=== PATIENT | female | born 1965 | race Caucasian/White ===

== ENCOUNTER 2016-08-06 09:19 | Emergency (ER) | payer OTHER ==
[~2016-08-06] VITALS: Ht 236.2 cm; Wt 76.0 kg
[~2016-08-06 09:19] MED LIST: CEPH-443 PO; FER325 PO; HYDR-3498 PO; IBUP-1542 PO; MECL25TA2 PO; NYST15CR16 TOP
[2016-08-06 09:22] VITALS: Ht 236.2 cm; Wt 76.0 kg
[2016-08-06] MEDS ORDERED: DEXAMETHASONE 10 MG/ML 1 ML INJ IV STA (09:51)
[2016-08-06] MEDS ORDERED: LEVALBUTEROL (NEB) 1.25 MG/0.5 ML AMP INH STA (09:51)
[2016-08-06 10:36] LABS: ADD SCAN DIFF NO
[2016-08-06 10:38] LABS: BASOPHILS % 0.6 % (0.0-2.0); EOSINOPHILS # 0.4 10^3/ul (0.0-0.5); HEMOGLOBIN 15.2 g/dl (12.0-16.0); LYMPHOCYTES # 1.1 10^3/ul (0.8-2.9); MEAN CORPUSCULAR HEMOGLOBIN 29.9 pg (29.0-33.0); MEAN CORPUSCULAR HGB CONC 34.5 g/dl (32.0-37.0); MEAN CORPUSCULAR VOLUME 86.6 fl (82.0-101.0); MEAN PLATELET VOLUME 10.2 fl (7.4-10.4); MONOCYTE # 0.5 10^3/ul (0.3-0.9); MONOCYTES % 10.6 % (0.0-11.0); NEUTROPHILS % 59.6 % (39.0-77.0); PLATELET COUNT 223 10^3/UL (140-415); RED BLOOD COUNT 5.08 10^6/ul (4.20-5.40); RED CELL DISTRIBUTION WIDTH 12.1 % (11.5-14.5)
[2016-08-06 10:53] LABS: D-DIMER 381.77 ng/ml (<460)
--- NOTE | 2016-08-06 11:10 | RADRPT ---
PROCEDURE: XR Chest AP portable CLINICAL INDICATION: Asthma exacerbation TECHNIQUE: An AP portable radiograph of the chest was submitted. COMPARISON: None. FINDINGS: Support Hardware: None Cardiovascular: The cardiovascular silhouette appears unremarkable. Lung Bernal: A suboptimal inspiration compresses lung parenchyma with discoid atelectasis seen at th e lung bases. Pleural Spaces: No pneumothorax or pleural effusion is identified. Osseous Structures: The osseous structures appear intact. Soft Tissues: The soft tissues appear generous. IMPRESSION: Suboptimal inspiration with discoid atelectasis seen at the lung bases. Physician Leatha Date Time Electronically viewed and signed by Physician Leatha on 08/06/2016 11:09 /
[2016-08-06 11:13] LABS: CHLORIDE 105 mmol/L (97-110)
[2016-08-06 11:14] LABS: POTASSIUM 3.8 mmol/L (3.5-5.1); SODIUM 141 mmol/L (135-144)
[2016-08-06 11:16] LABS: CREATININE 0.74 mg/dl (0.44-1.00)
[2016-08-06 11:17] LABS: ANION GAP 16 (8-16); BLOOD UREA NITROGEN 16 mg/dl (7-20); CALCIUM 9.1 mg/dl (8.4-10.2); CARBON DIOXIDE 24 mmol/L (21-31); GLUCOSE 151 mg/dl (70-220)
--- NOTE | 2016-08-06 11:23 | ERD ---
ER Documentation Chief Complaint Date/Time DATE: 08/06/16 TIME: 11:18 Chief Complaint SOB,HX OF ASTHMA,BACK PAIN HPI This is a 51-year-old female presenting to the emergency department for shortness of breath and wheezing starting today. Patient states she has a history of asthma and has been out of her inhaler. Patient also having some upper back pain. No labored breathing or intercostal retractions. Denies cough , sore throat or difficulty swallowing. No earache or headache. ROS All systems reviewed and are negative except as per history of present illness. Medications Home Meds Active Scripts Prednisone* (Prednisone*) 20 Mg Tab, 40 MG PO DAILY for 4 Days, TAB Prov:KUMAR CÁRDENAS NP 08/06/16 Albuterol Sulfate* (Proair HFA*) 8.5 Gm Hfa.aer.ad, 2 PUFF INH Q4, #1 INHALER Prov:KUMAR CÁRDENAS NP 08/06/16 Cephalexin* (Keflex*) 500 Mg Capsule, 500 MG PO QID for 7 Days, CAP Prov:COREY DELGADO MD 03/13/16 Nystatin-Triamcinolone* (Nystatin-Triamcinolone* Cream) 15 Gm Cream.gm., 1 APPLIC TOP BID for 10 Days, TUB Prov:COREY DELGADO MD 03/13/16 Meclizine Hcl* (Antivert*) 25 Mg Tablet, 25 MG PO Q6H Y for dizziness, #20 TAB Prov:MELLO MO DO 08/25/15 Meclizine Hcl* (Antivert*) 25 Mg Tablet, 25 MG PO Q6H Y for vertigo, #14 TAB Prov:MELLO MO DO 08/25/15 Ibuprofen* (Motrin*) 600 Mg Tab, 600 MG PO Q6, #30 TAB Prov:ISIAH,AZ C 07/17/15 Hydrocodone Bit-Acetaminophen* ([place]*) 5-325 Mg Tab, 1 TAB PO Q6 Y for PAIN, # 20 TAB Prov:ISIAH,AZ C 07/17/15 Ferrous Sulfate* (Ferrous Sulfate*) 325 Mg Tabec, 325 MG PO BID for 30 Days, TAB Prov:TELLO KENDALL MD 04/01/15 Allergies Allergies: Coded Allergies: No Known Allergy (Unverified , 03/13/16) PMhx/Soc History of Surgery: Yes (c section x 3 ) Anesthesia Reaction: No Hx Neurological Disorder: No Hx Respiratory Disorders: Yes (asthma , rt lung mass ) Hx Cardiac Disorders: No Hx Psychiatric Problems: Yes (depression) Hx Miscellaneous Medical Probl: Yes (vertigo ) Hx Alcohol Use: No Hx Substance Use: No Hx Tobacco Use: No Physical Exam Vitals Vital Signs Date Time Temp Pulse Resp B/P Pulse Ox O2 Delivery O2 Flow Rate FiO2 08/06/16 10:05 96 18 96 21 08/06/16 09:22 98.4 96 18 129/59 98 Physical Exam Const: Alert, sitting in tripod position Head: Atraumatic Eyes: Normal Conjunctiva ENT: Normal External Ears, Nose and Mouth. Neck: Full range of motion..~ No meningismus. Resp: Mild wheezing to auscultation bilaterally. No crackles Cardio: Regular rate and rhythm, no murmurs Abd: Soft, non tender, non distended. Normal bowel sounds Skin: No petechiae or rashes Back: No midline or flank tenderness Ext: No cyanosis, or edema Neur: Awake and alert Psych: Normal Mood and Affect Result Diagram: 08/06/16 1004 08/06/16 1004 Results 24 hrs Laboratory Tests Test 08/06/16 10:04 White Blood Count 5.010^3/ul Red Blood Count 5.0810^6/ul Hemoglobin 15.2g/dl Hematocrit 44.0% Mean Corpuscular Volume 86.6fl Mean Corpuscular Hemoglobin 29.9pg Mean Corpuscular Hemoglobin Concent 34.5g/dl Red Cell Distribution Width 12.1% Platelet Count 26539^3/UL Mean Platelet Volume 10.2fl Neutrophils % 59.6% Lymphocytes % 22.0% Monocytes % 10.6% Eosinophils % 7.0% Basophils % 0.6% Nucleated Red Blood Cells % 0.0/100WBC Neutrophils # 3.010^3/ul Lymphocytes # 1.110^3/ul Monocytes # 0.510^3/ul Eosinophils # 0.410^3/ul Basophils # 0.010^3/ul Nucleated Red Blood Cells # 0.010^3/ul D-Dimer 381.77ng/ml D-Dimer Comment Sodium Level 141mmol/L Potassium Level 3.8mmol/L Chloride Level 105mmol/L Carbon Dioxide Level 24mmol/L Anion Gap 16 Blood Urea Nitrogen 16mg/dl Creatinine 0.74mg/dl Glucose Level 151mg/dl Calcium Level 9.1mg/dl Troponin I < 0.012ng/ml Current Medications Medications (Trade) Dose Ordered Sig/Hong Route PRN Reason Start Time Stop Time Status Last Admin Dose Admin Dexamethasone (Decadron) 10 mg ONCE STAT IV 08/06/16 09:51 08/06/16 10:53 DC 08/06/16 10:06 Levalbuterol (Xopenex Neb) 1.25 mg ONCE STAT INH 08/06/16 09:51 08/06/16 10:53 DC 08/06/16 10:05 Procedures/MDM ED COURSE: The patient was stable throughout ED course. I kept the patient and/or family informed of laboratory and diagnostic imaging results throughout the ED course. Laboratory CBC no significant anemia or infection BMP no significant electrolyte imbalance per Troponin <0.012 D-dimer 381.77 Imaging Chest x-ray Patient: VAUGHN KONG : 1965 Age: 51 Sex: F MR #: [id number] DOS: 08/06/16 0951 Ordering MD: KUMAR CÁRDENAS NP Location: [facility] Room/Bed: PROCEDURE: XR Chest AP portable CLINICAL INDICATION: Asthma exacerbation TECHNIQUE: An AP portable radiograph of the chest was submitted. COMPARISON: None. FINDINGS: Support Hardware: None Cardiovascular: The cardiovascular silhouette appears unremarkable. Lung Bernal: A suboptimal inspiration compresses lung parenchyma with discoid atelectasis seen at the lung bases. Pleural Spaces: No pneumothorax or pleural effusion is identified. Osseous Structures: The osseous structures appear intact. Soft Tissues: The soft tissues appear generous. IMPRESSION: Suboptimal inspiration with discoid atelectasis seen at the lung bases. EKG: As interpreted by myself and Dr. Page Rate/Rhythm: Normal sinus rhythm with heart rate 69 bpm QRS, ST, T-waves: No changes consistent w/ acute ischemia Impression: No evidence of ischemia or arrhythmia MDM:51-year-old female presents emergency department for shortness of breath and wheezing. Patient has history of asthma and states she has been out of her inhaler. Patient also reports some upper back pain. Pain is nonradiating. Denies chest pain or difficulty breathing. Patient states she becomes out of breath with walking. No fevers or chills. [place] hemodynamically stable. Oxygen saturation 98% on room air. Patient given 1 dose of Xopenex nebulizer treatment. Upon reassessment, wheezing has diminished. Patient's lungs sound clear now. Patient states she is feeling much better. No shortness of breath with ambulating. EKG interpreted by myself and Dr. Page showed normal sinus rhythm with heart rate 69 bpm. Labs are unremarkable. Troponin is negative. D -dimer is normal. Remains hemodynamically stable. Patient appears calm and comfortable throughout ED visit peer Low suspicion for pneumonia, pleural effusion, pneumothorax, pulmonary embolism , acute [place] and CHF. Patient likely has shortness of breath secondary to asthma. Patient is appropriate for outpatient management will be given prescription for pro-air inhaler and prednisone. Instructed patient to follow-up with primary care provider in the next 2-3 days for reassessment and additional management. Return to ED for any high fever, chest pain, difficulty breathing, shortness breath, wheezing, vomiting, diarrhea, abdominal pain or any new or worsening symptoms. Patient verbalizes understanding. All questions answered at discharge. Departure Diagnosis: Primary Impression: Shortness of breath Condition: Stable KUMAR CÁRDENAS NP Aug 06, 2016 11:23
[2016-08-06 11:29] LABS: TROPONIN-I < 0.012 ng/ml (0.00-0.12)
[2016-08-06] MEDS ORDERED: PRED20TA PO (11:37)
[2016-08-06] MEDS ORDERED: ALBU8.5H3 INH (11:37)
== END 2016-08-06 12:40 | disposition home or self-care (01) ==
LOC: FTE 09:19
DX: R06.02 Shortness of breath (principal); J45.909 Unspecified asthma, uncomplicated
CPT/HCPCS: 71010; 80048; 84484; 85025; 85378; 93005; 94664; 96374; J1100; Z7502; Z7610

== ENCOUNTER 2017-10-10 09:16 | Emergency (ER) | END 2017-10-10 10:18 | disposition home or self-care (01) ==

== ENCOUNTER 2018-07-21 20:21 | Emergency (ER) | payer OTHER ==
[~2018-07-21] VITALS: Ht 157.5 cm; Wt 78.7 kg
[~2018-07-21 20:21] MED LIST changes: +ALBU8.5H8 INH; +FIORICET PO; -NYST15CR16 TOP; +NYST15CR36 TOP; +PRED20TA PO
[2018-07-21 20:32] VITALS: Ht 157.5 cm; Wt 78.7 kg
--- NOTE | 2018-07-21 22:42 | ERD ---
ER Documentation Chief Complaint Chief Complaint LEFT GREAT TOE INJ; BANGED IT AGAINST CHAIR X1DAY HPI 53-year-old female, previously healthy, presents the emergency department complaining of left great toe pain after sustaining a direct trauma against furniture at home today. The pain is dull, constant, 7/10. She denies distal weakness, numbness or tingling. ROS All systems reviewed and are negative except as per history of present illness. Medications Home Meds Active Scripts Acetamin/Butalbital/Caffeine* (Fioricet*) [id number] Tab, 1 TAB PO Q6H PRN for PAIN, #20 TAB Prov:SANDRA MULLINS PA-C 10/10/17 Prednisone* (Prednisone*) 20 Mg Tab, 40 MG PO DAILY for 4 Days, TAB Prov:KUMAR CÁRDENAS NP 08/06/16 Albuterol Sulfate* (Proair HFA*) 8.5 Gm Hfa.aer.ad, 2 PUFF INH Q4, #1 INHALER Prov:KUMAR CÁRDENAS NP 08/06/16 Cephalexin* (Keflex*) 500 Mg Capsule, 500 MG PO QID for 7 Days, CAP Prov:COREY DELGADO MD 03/13/16 Nystatin-Triamcinolone* (Nystatin-Triamcinolone* Cream) 15 Gm Cream.gm., 1 APPLIC TOP BID for 10 Days, TUB Prov:COREY DELGADO MD 03/13/16 Meclizine Hcl* (Antivert*) 25 Mg Tablet, 25 MG PO Q6H PRN for dizziness, #20 TAB Prov:MELLO MO DO 08/25/15 Meclizine Hcl* (Antivert*) 25 Mg Tablet, 25 MG PO Q6H PRN for vertigo, #14 TAB Prov:MELLO MO DO 08/25/15 Ibuprofen* (Motrin*) 600 Mg Tab, 600 MG PO Q6, #30 TAB Prov:AZ JOYCE 07/17/15 Hydrocodone Bit-Acetaminophen* ([place]*) 5-325 Mg Tab, 1 TAB PO Q6 PRN for PAIN, #20 TAB Prov:AZ JOYCE 16 Ferrous Sulfate* (Ferrous Sulfate*) 325 Mg Tabec, 325 MG PO BID for 30 Days, TAB Prov:TELLO KENDALL MD 04/01/15 Allergies Allergies: Coded Allergies: No Known Allergy (Unverified , 03/13/16) PMhx/Soc History of Surgery: Yes (c section x 3 ) Anesthesia Reaction: No Hx Neurological Disorder: No Hx Respiratory Disorders: Yes (asthma , rt lung mass ) Hx Cardiac Disorders: No Hx Psychiatric Problems: Yes (depression) Hx Miscellaneous Medical Probl: Yes (vertigo ) Hx Alcohol Use: No Hx Substance Use: No Hx Tobacco Use: No Smoking Status: Never smoker Physical Exam Vitals Vital Signs Date Temp Pulse Resp B/P (MAP) Pulse Ox O2 O2 Flow FiO2 Time Delivery Rate 07/21/18 99.3 62 19 122/57 98 20:32 (78) Physical Exam Const: No acute distress Head: Atraumatic Eyes: Normal Conjunctiva ENT: Normal External Ears, Nose and Mouth. Neck: Full range of motion. No meningismus. Resp: Clear to auscultation bilaterally Cardio: Regular rate and rhythm, no murmurs Abd: Soft, non tender, non distended. Normal bowel sounds Skin: No petechiae or rashes Back: No midline or flank tenderness Ext: No cyanosis, or edema Neur: Awake and alert Psych: Normal Mood and Affect Departure Diagnosis: Primary Impression: Toe fracture, right Condition: Stable Additional Instructions: Muchas lita por [facility] para ryder servicio. Esperamos que en ryder visita a la syeda de emergencia ryder problema medico haya sido solucionado y que se sienta mucho mejor. Para estar seguros que ryder mejoria sigue en proceso, le pedimos el favor de hacer jose ramon avis de seguimiento medico con ryder doctor primario en los proximos 2-4 meehan. Lleve con usted estos documentos y las medicinas recetadas. Si negro sintomas empeoran, NO SE ESPERE, por favor regrese a syeda de emergencia INMEDIATAMENTE. En guru que usted no tenga un mdico de atencin primaria: Llame al mdico o clnica comunitaria de referencia que aparece abajo neetu las horas de consultorio para hacer jose ramon avis para que le vean. CLINICAS: [facility] [phone] [facility] [phone] [address] [facility] [phone] [address] [facility] [phone] [address] [place] [phone] [facility]. [phone] JUANIS LI MD Jul 21, 2018 22:42
[2018-07-22] MEDS ORDERED: IBUP-1561 PO (00:31)
[2018-07-22] MEDS ORDERED: ACET325T33 PO (00:31)
[2018-07-22 00:53] VITALS: BP 130/66; PULSE 80; RESP 20
== END 2018-07-22 00:54 | disposition home or self-care (01) ==
LOC: FTE 20:21
DX: S92.421A Displaced fracture of distal phalanx of right great toe, initial encounter for closed fracture (principal); J45.909 Unspecified asthma, uncomplicated; W22.8XXA Striking against or struck by other objects, initial encounter; Y92.9 Unspecified place or not applicable
CPT/HCPCS: 73660; Z7502

== ENCOUNTER 2018-08-29 17:43 | Emergency (ER) | payer OTHER ==
[~2018-08-29] VITALS: Wt 78.9 kg
[~2018-08-29 17:43] MED LIST changes: +ACET325T33 PO; +IBUP-1561 PO
[2018-08-29] MEDS ORDERED: NAPR-985 PO (21:35)
[2018-08-29 21:53] VITALS: BP 114/64; PULSE 62; RESP 18
--- NOTE | 2018-08-29 23:23 | ERD ---
ER Documentation Chief Complaint Chief Complaint right big toe pain after "furniture" fell on it HPI 53-year-old female presenting with right toe pain after she dropped a piece of furniture on it earlier this evening. She denies any numbness or tingling. She has not taken any medications for pain. Denies other medical problems. NKDA. Surgical history . Social history denies ROS All systems reviewed and are negative except as per history of present illness. Medications Home Meds Active Scripts Naproxen* (Naprosyn*) 500 Mg Tablet, 500 MG PO BID PRN for PAIN AND/OR INFLAMMATION, #30 TAB Prov:BOBBY MADRID PA-C 08/29/18 Acetaminophen* (Tylenol*) 325 Mg Tablet, 2 TAB PO Q8 PRN for PAIN AND OR ELEVATED TEMP, #20 TAB Prov:JUANIS CABRERA MD 07/22/18 Ibuprofen* (Motrin*) 400 Mg Tab, 400 MG PO Q8, #30 TAB Prov:JUANIS CABRERA MD 07/22/18 Acetamin/Butalbital/Caffeine* (Fioricet*) [id number] Tab, 1 TAB PO Q6H PRN for PAIN, #20 TAB Prov:SANDRA MULLINS PA-C 10/10/17 Prednisone* (Prednisone*) 20 Mg Tab, 40 MG PO DAILY for 4 Days, TAB Prov:KUMAR CÁRDENAS NP 08/06/16 Albuterol Sulfate* (Proair HFA*) 8.5 Gm Hfa.aer.ad, 2 PUFF INH Q4, #1 INHALER Prov:KUMAR CÁRDENAS NP 08/06/16 Cephalexin* (Keflex*) 500 Mg Capsule, 500 MG PO QID for 7 Days, CAP Prov:COREY DELGADO MD 03/13/16 Nystatin-Triamcinolone* (Nystatin-Triamcinolone* Cream) 15 Gm Cream.gm., 1 APPLIC TOP BID for 10 Days, TUB Prov:COREY DELGADO MD 03/13/16 Meclizine Hcl* (Antivert*) 25 Mg Tablet, 25 MG PO Q6H PRN for dizziness, #20 TAB Prov:MELLO MO DO 08/25/15 Meclizine Hcl* (Antivert*) 25 Mg Tablet, 25 MG PO Q6H PRN for vertigo, #14 TAB Prov:MELLO MO DO 08/25/15 Ibuprofen* (Motrin*) 600 Mg Tab, 600 MG PO Q6, #30 TAB Prov:AZ JOYCE C 07/17/15 Hydrocodone Bit-Acetaminophen* ([place]*) 5-325 Mg Tab, 1 TAB PO Q6 PRN for PAIN, #20 TAB Prov:AZ JOYCE C 07/17/15 Ferrous Sulfate* (Ferrous Sulfate*) 325 Mg Tabec, 325 MG PO BID for 30 Days, TAB Prov:TELLO KENDALL MD 04/01/15 Allergies Allergies: Coded Allergies: No Known Allergy (Unverified , 03/13/16) PMhx/Soc History of Surgery: Yes (c section x 3 ) Anesthesia Reaction: No Hx Neurological Disorder: No Hx Respiratory Disorders: Yes (asthma , rt lung mass ) Hx Cardiac Disorders: No Hx Psychiatric Problems: Yes (depression) Hx Miscellaneous Medical Probl: Yes (vertigo ) Hx Alcohol Use: No Hx Substance Use: No Hx Tobacco Use: No Smoking Status: Never smoker FmHx Family History: No diabetes, No coronary disease, No other Physical Exam Vitals Vital Signs Date Temp Pulse Resp B/P (MAP) Pulse Ox O2 O2 Flow FiO2 Time Delivery Rate 08/29/18 98.7 62 18 114/64 97 Room Air 21:53 (81) 08/29/18 98.6 74 20 118/59 96 17:53 (78) Physical Exam GENERAL: The patient is well-appearing, well-nourished, in no acute distress CHEST: Clear to auscultation bilaterally. There are no rales, wheezes or rhonchi. HEART: Regular rate and rhythm. No murmurs, clicks, rubs or gallops. EXTREMITIES: Equal pulses bilaterally. There is no peripheral clubbing, cyanosis or edema. No focal swelling or erythema. Full range of motion. Grossly neurovascularly intact. NEUROLOGIC: Alert and oriented. Cranial nerves II through XII intact. Motor strength in all 4 extremities with 5 out of 5 strength. Sensation grossly intact. SKIN: Bruising noted to the right toe with no subungual hematoma. Procedures/MDM DIAGNOSTIC IMAGING REPORT Patient: VAUGHN KONG : 1965 Age: 53 Sex: F MR #: [id number] DOS: 08/29/182004 Ordering MD: ANDRE MADRID PA-C Location: [facility] Room/Bed: PROCEDURE: XR Great Toe. CLINICAL INDICATION: Pain. TECHNIQUE: 3 views of the right great toe are available for review COMPARISON: 07/21/2018 FINDINGS: The small focus of calcification or ossification within the soft tissues medial and dorsal to the first interphalangeal joint has decreased in size. There is mild joint space narrowing of the first metatarsophalangeal and interphalangeal joints with osseous spurring. The soft tissues are otherwise unremarkable. IMPRESSION: 1. Decrease in size of the small focus of calcification or ossification medial and dorsal to the first interphalangeal joint which may be from hydroxyapatite deposition versus an avulsion fragment although there is no significant deformity or definite donor site from the first proximal or distal phalanges. 2. 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 ER Course: Ortho shoe given in ED MDM: 53-year-old female presenting with pain to her right great toe. I will suspicion for acute fracture dislocation. Patient likely sustained a contusion. Patient is discharged with strict ER precautions and told to follow-up with primary care. Patient is told if symptoms change or worsen to return immediately to the ER. All questions answered at discharge Departure Diagnosis: Primary Impression: Injury of toe Condition: Stable Patient Instructions: Sprain Toe Referrals: [facility] (PCP) Additional Instructions: FOLLOW UP WITH YOUR PRIMARY CARE PHYSICIAN TOMORROW.Return to this facility if you are not improving as expected. BOBBY MADRID PA-C Aug 29, 2018 23:23
== END 2018-08-29 21:54 | disposition home or self-care (01) ==
LOC: FTE 17:43
DX: S90.111A Contusion of right great toe without damage to nail, initial encounter (principal); J45.909 Unspecified asthma, uncomplicated; W20.8XXA Other cause of strike by thrown, projected or falling object, initial encounter; Y92.9 Unspecified place or not applicable
CPT/HCPCS: 73660; L3260; Z7502